=== PATIENT | male | born 2000 | race Hispanic/Latino ===

== ENCOUNTER 2025-05-12 14:54 | Emergency (ER) | payer BC ==
[~2025-05-12] VITALS: Ht 170.2 cm; Wt 80.7 kg
--- NOTE | 2025-05-12 15:23 | ERN ---
ED Note History of Present Illness Stated Complaint: WRIST Chief Complaint: Wrist Pain/Injury Time Seen by MD: 14:56 Time Seen by Midlevel: 15:00 Dictation: Genaro is a 24 year old male with no reported chronic health issues who presented to the emergency department this afternoon for evaluation of wrist pain. He reports left wrist pain which began approximately 2 hours ago when he fell from a moving golf cart. He states he reported immediate pain to the left wrist/pain 4th range of motion. Range of motion is intact to fingers, elbow, and shoulder of same extremity. He denies additional injury. He denies hitting head or loss of consciousness. He reports tenderness over the radial aspect of the right wrist, near the radial styloid. He has good color, warmth, movement, and sensation to right fingers. Capillary refill is brisk Allergies: Coded Allergies: No Known Drug Allergies (Unverified Allergy, Unknown, 05/12/25) Past Medical History Past Medical History: No Pertinent History Additional Past Medical Hx: denies pmhx Surgical History: None RN Note Reviewed/Agreed w/PFSH: Yes Review of System Dictation REVIEW OF SYSTEMS: CONSTITUTIONAL: Patient denies fevers, chills, sweats and weight changes. EYES: Patient denies any visual symptoms. EARS, NOSE, AND THROAT: No difficulties with hearing. No symptoms of rhinitis or sore throat. CARDIOVASCULAR: Patient denies chest pains, palpitations, orthopnea and paroxysmal nocturnal dyspnea. RESPIRATORY: No dyspnea on exertion, no wheezing or cough. GI: No nausea, vomiting, diarrhea, constipation, abdominal pain, hematochezia or melena. : No urinary hesitancy or dribbling. No nocturia or urinary frequency. No abnormal urethral discharge. MUSCULOSKELETAL: Reports pain left wrist. NEUROLOGIC: No chronic headaches, no seizures. Patient denies numbness, tingling or weakness. PSYCHIATRIC: Patient denies problems with mood disturbance. No problems with anxiety. ENDOCRINE: No excessive urination or excessive thirst. DERMATOLOGIC: Patient denies any rashes or skin changes. Initial Vital Sign VS Vital Signs Date Time Temp Pulse Resp B/P (MAP) Pulse Ox O2 Delivery O2 Flow Rate FiO2 05/12/25 14:55 98.1 103 16 127/69 97 Room Air 0 05/12/25 14:58 21 Physical Exam Dictation Vital signs: Reviewed. Constitutional: No acute distress. Non-toxic appearing. Accompanied by father Head/Face: Normocephalic, atraumatic. Eyes: Periorbital areas with no swelling, redness, or edema. Lids and lashes are normal. Conjunctival injection is absent. Sclera anicteric. Pupils equal, round, reactive to light. ENT: Pinnas intact and no signs of trauma or erythema. Ear canals clear and no discharge. TMs no erythema. No nasal discharge or bleeding noted. Oropharynx with no exudate, redness, swelling, masses, exudates, or evidence of obstruction. Uvula midline. Mucous membranes moist. Neck: Trachea midline, no masses palpated, and no cervical lymphadenopathy. No swelling. Supple, full range of motion. Chest/Axilla: No tenderness, no crepitus, no paradoxical movement, no retractions. Cardiovascular: Regular rate, regular rhythm, no murmur, no gallops. Symmetric pulses. No peripheral edema. Respiratory: Respirations even and unlabored. Lung sounds clear; no wheezes, rales or rhonchi. Gastrointestinal: Inspection is normal. No distention is appreciated. Bowel sounds are normal. No mass or organomegaly . There is no tenderness. No rebound. No rigidity. No voluntary or involuntary guarding. No Esparza's sign. Neurological: Normal speech, gross motor function intact, gross sensory function intact. No focal weakness/Paresthesia. Musculoskeletal/Extremities: There is slight edema of the left wrist. He has tenderness over the radial aspect of the right wrist, near the radial styloid. He has good color, warmth, movement, and sensation to the left fingers. Radial and ulnar pulses are palpable. No obvious deformity or bony crepitus. Integumentary: Intact. Skin is normal color, warm and dry. Cap refill less than 2 seconds. Results (Laboratory/Radiology) X-RAY Comment: PATIENT: GENARO CARUSO MR#: [id number] : 2000 SEX: M AGE: 24 LOCATION: ED ORDER 152 STATUS: REG ER REPORT#: [id number] SERVICE [id number] REASON: fall injury ORDERING PHYSICIAN: RAQUEL PRESTON NP PROCEDURE: WRST 3V LT - WRIST COMP 3+VWS LT EXAM: CR left Wrist, 3 View. CLINICAL HISTORY: fall injury COMPARISON: None provided. FINDINGS: BONES: There is an acute mildly displaced intra-articular fracture of the distal left radius. Nondisplaced transverse fracture through the base of the ulnar styloid process. Remaining demonstrated bony structures are within normal limits. JOINTS: No dislocation. The carpal bones demonstrate normal alignment. SOFT TISSUES: The soft tissues are unremarkable. IMPRESSION: An acute mildly displaced intra articular fracture of the distal left radius. Associated nondisplaced transverse fracture through the base of the ulna styloid process. /[place] DICTATED BY: JUAN C RUBIN Jr., MD DATE: 05/12/251753 ELECTRONICALLY SIGNED BY: JUAN C RUBIN Jr., MD DATE: 05/12/251753 ED Course ED Course Orders Procedure Category Date Status Time Hydrocodone/Apap PHA 05/12/25 In Process 5/325 ([place] 5/325mg) 15:30 Wrist Comp 3+Vws Lt RAD 05/12/25 Resulted 15:22 Apply Ice Pack To: CPOE 05/12/25 Transmitted (Er) 15:22 Reverse Sugar Tong KULWINDER 05/12/25 In Process Splint 17:10 Current Medications Medications (Trade) Dose Ordered Sig/Darian Route PRN Reason Start Time Stop Time Status Last Admin Dose Admin Acetaminophen/ Hydrocodone Bitart (NORco 5/325MG) 1 tab ONCE PO 05/12/25 15:30 05/12/25 19:30 05/12/25 15:31 Vital Signs Date Time Temp Pulse Resp B/P (MAP) Pulse Ox O2 Delivery O2 Flow Rate FiO2 05/12/25 16:44 98.1 92 16 128/68 97 Room Air* 0 05/12/25 14:58 98.1 103 16 127/69 97 Room Air* 0 05/12/25 14:55 98.1 103 16 127/69 97 Room Air 0 Uneventful ED course. Vital signs stable; afebrile and normotensive with room air SpO2 97%. Pain minimal following application of ice pack and [place] x1. X- ray of the wrist revealed acute mildly displaced intra-articular fracture of the distal left radius with associated nondisplaced transverse fracture through the base of the ulnar styloid process. Patient was placed in reverse sugar-tong splint and sling applied. He continues to have good color, warmth, movement, and sensation to the fingers of the left hand and capillary refill is brisk. Patient will be referred to orthopedic surgeon for follow up. Medical Decision Making MDM MDM: Differential diagnosis: Fracture radius/ulna, contusion, sprain Rationale: Tests considered and ordered secondary to shared decision making include: Examination, x-ray Previous outside records reviewed: Old ER visits. Risk of complication and/or morbidity or mortality of patient management: None Medications-Per medication reconciliation Need for hospitalization: Patient does not meet criteria for hospitalization. Need for emergency major/minor surgery: No There are no social concerns with this patient. Prescription drug management: Ibuprofen, Tylenol No. 3 Prescriptions will include symptomatic care Patient's prior external medical records from other ER visits were reviewed by me as indicated. Prior testing and results from previous visits were reviewed. Prior tests were taken into account with medical decision making and resource utilization, independent historian/historians were used to obtain complete medical history. I independently interpreted the test that were performed, results were reviewed by me and considered findings on radiology if ordered. Medical management and examination interpretation discussions were had by me with other qualified healthcare professionals as indicated for the patient's care. DX & DISP Disposition: Discharge Departure Impression: Primary Impression: Fracture of distal end of left radius Additional Impression: Fracture of styloid process of left ulna Condition: Stable Scripts Acetaminophen with Codeine (Acetaminophen-Cod #3 Tablet) 300 Mg-30 Mg Tablet 1 EACH PO q8 hours PRN, #6 TAB 0 Refills Prov: RAQUEL PRESTON [employer] 05/12/25 Ibuprofen (Ibuprofen) 600 Mg Tablet 600 MG PO Q6H PRN for PAIN, #20 TAB 0 Refills Prov: RAQUEL PRESTON [employer] 05/12/25 Additional Instructions: Elevate your arm above the level of your heart as much as possible for the next 48-72 hours. Use pillows to keep it propped up while lying down or sitting. Apply an ice pack over the splint 15-20 minutes at a time, every 1-2 hours while awake, for the 1st two days. Wrap ice and a towel-do not place ice directly on skin. Take pain medication as prescribed. May take [id number] Tylenol or ibuprofen for [id number] pain reserve Tylenol No. 3 for severe pain. Pain and swelling are normal in the 1st few days but should gradually improve. Do not lift, push, or pull with the injured arm. Avoid activities that might bump or jaw of the arm. Move your fingers often to help reduce swelling and stiffness. Follow up Wednesday morning with ultrasound applications specialist, Dr. Harp,. Return to the emergency department for any worsening of symptoms or concerns. Referrals: BERTHA HARP DO Time of Disposition: 17:25 RAQUEL PRESTON NP May 12, 2025 15:23
[2025-05-12] MEDS: HYDROcodone/APAP 5/325 1 TAB TABLET PO SCH (15:31)
[2025-05-12 16:44] VITALS: BP 128/68; PULSE 92; RESP 16; TEMP 98.1; O2SAT 97
--- NOTE | 2025-05-12 16:55 | HMCIMG ---
EXAM: CR left Wrist, 3 View. CLINICAL HISTORY: fall injury COMPARISON: None provided. FINDINGS: BONES: There is an acute mildly displaced intra-articular fracture of the distal left radius. Nondisplaced transverse fracture through the base of the ulnar styloid process. Remaining demonstrated bony structures are within normal limits. JOINTS: No dislocation. The carpal bones demonstrate normal alignment. SOFT TISSUES: The soft tissues are unremarkable. IMPRESSION: An acute mildly displaced intra articular fracture of the distal left radius. Associated nondisplaced transverse fracture through the base of the ulna styloid process. /[place]
[2025-05-12] MEDS ORDERED: ACET-2079 PO (17:20)
[2025-05-12] MEDS ORDERED: IBUP-1492 PO (17:20)
== END 2025-05-12 17:50 | disposition home or self-care (01) ==
LOC: EDH 14:54
DX: S52.512A Displaced fracture of left radial styloid process, initial encounter for closed fracture (principal); W18.39XA Other fall on same level, initial encounter; Y93.89 Activity, other specified; Y92.89 Other specified places as the place of occurrence of the external cause; Y99.8 Other external cause status
CPT/HCPCS: 29125; 73110; 99283